=== PATIENT | male | born 1980 | race Caucasian/White ===

== ENCOUNTER 2022-01-02 17:08 | Inpatient (IN) | payer MEDICAID, OTHER, SELFPAY ==
[~2022-01-02] VITALS: Ht 182.9 cm; Wt 91.0 kg
[2022-01-02] MEDS ORDERED: NS 1,000 ML IV SCH (17:15)
[2022-01-02 17:50] LABS: BASO % 0.4 % (0.0-1.0); EOS % 0.4 % (0.0-3.0); HEMATOCRIT 47.7 % (42.0-52.0); LYMPH # 3.5 10^3/uL (1.5-5.0); LYMPH % 37.1 % (24.0-44.0); MEAN CORPUSCULAR HEMOGLOBIN 29.9 pg (27.0-33.0); MEAN CORPUSCULAR HGB CONC 33.5 g/dl (32.0-36.5); MONO # 0.7 10^3/uL (0.0-0.8); MONO % 7.4 % (2.0-8.0); NEUTROPHILS # 5.2 10^3/uL (1.5-8.5); NEUTROPHILS % 54.5 % (36.0-66.0); PLATELET COUNT, AUTOMATED 256 10^3/uL (150-450); RED BLOOD COUNT 5.36 10^6/uL (4.30-6.10); WHITE BLOOD COUNT 9.5 10^3/uL (4.0-10.0)
[2022-01-02] MEDS ORDERED: PROPOFOL 1,000 MG/100 ML VIAL As Ordered ONE (17:57)
[2022-01-02] MEDS ORDERED: ROCURONIUM BROMIDE 50 MG/5 ML VIAL IV ONE (18:05)
[2022-01-02] MEDS ORDERED: ETOMIDATE INJ 20MG/10ML VIAL IV ONE (18:05)
[2022-01-02] MEDS: propofoL 1,000 MG in IV 1 EA IV SCH ×2 (18:06→22:56)
[2022-01-02 18:19] LABS: RSV AMPLIFICATION NEGATIVE (NEGATIVE)
[2022-01-02] MEDS: ROCURONIUM BROMIDE 50 MG/5 ML VIAL IV PRN ×2 (18:25→18:56)
[2022-01-02 18:29] LABS: AMPHETAMINES LEVEL URINE NEGATIVE (NEGATIVE); BARBITURATES URINE NEGATIVE (NEGATIVE); BENZODIAZEPINES URINE NEGATIVE (NEGATIVE); CANNABINOIDS URINE NEGATIVE (NEGATIVE); COCAINE METABOLITE URINE NEGATIVE (NEGATIVE); METHADONE URINE NEGATIVE (NEGATIVE); OPIATES URINE NEGATIVE (NEGATIVE); PHENCYCLIDINE URINE NEGATIVE (NEGATIVE)
[2022-01-02 18:47] LABS: ACETAMINOPHEN LEVEL < 2.0 UG/ML (10.0-30.0); ALBUMIN 4.3 GM/DL (3.2-5.2); ALT/SGPT 28 U/L (12-78); BILIRUBIN,DIRECT 0.1 MG/DL (0.0-0.2); BILIRUBIN,TOTAL 0.3 MG/DL (0.2-1.0); BLOOD UREA NITROGEN 6 MG/DL (7-18); CALCIUM LEVEL 8.7 MG/DL (8.5-10.1); CARBON DIOXIDE LEVEL 25 MEQ/L (21-32); CHLORIDE LEVEL 107 MEQ/L (98-107); CREATININE FOR GFR 0.78 MG/DL (0.70-1.30); ETHYL ALCOHOL (ETHANOL) 0.333 % (0.000-0.010); GLOMERULAR FILTRATION RATE > 60.0 (>60); GLUCOSE, FASTING 116 MG/DL (70-100); POTASSIUM SERUM 3.5 MEQ/L (3.5-5.1); SODIUM LEVEL 143 MEQ/L (136-145); THYROID STIMULATING HORMONE 0.364 uIU/ML (0.358-3.740); TOTAL PROTEIN 7.5 GM/DL (6.4-8.2)
[2022-01-02] MEDS ORDERED: CHARCOAL ACTIVATED LIQUID 25 GM/120 ML BTL NG ONE (18:50)
[2022-01-02] MEDS ORDERED: HOME MED LIST COMPLETE! XX SCH (19:20)
[2022-01-02] MEDS ORDERED: THIAMINE 200MG 2ML VIAL IM SCH (21:00)
[2022-01-02] MEDS ORDERED: MIDAZOLAM 100MG/100ML-0.9%NACL 100 MG in IV 1 EA IV SCH (21:00)
[2022-01-02 22:32] LABS: ABG HCO3 24.9 MEQ/L (22.0-26.0); ABG PARTIAL PRESSURE CO2 45.4 mmHg (35.0-45.0); ABG PARTIAL PRESSURE O2 126.9 mmHg (75.0-100.0); ABG STANDARD HCO3 23.7 MEQ/L (22.0-26.0); ABG TOTAL CO2 26.3 MEQ/L (22.0-29.0); ABG pH (ARTERIAL) 7.357 UNITS (7.350-7.450)
[2022-01-02] MEDS: NS 1,000 ML IV SCH (22:35)
[2022-01-02 22:59] LABS: ALBUMIN 3.7 GM/DL (3.2-5.2); ALT/SGPT 27 U/L (12-78); BILIRUBIN,TOTAL 0.5 MG/DL (0.2-1.0); BLOOD UREA NITROGEN 5 MG/DL (7-18); CALCIUM LEVEL 8.5 MG/DL (8.5-10.1); CARBON DIOXIDE LEVEL 25 MEQ/L (21-32); CHLORIDE LEVEL 109 MEQ/L (98-107); CREATININE FOR GFR 0.84 MG/DL (0.70-1.30); GLOMERULAR FILTRATION RATE > 60.0 (>60); GLUCOSE, FASTING 115 MG/DL (70-100); SODIUM LEVEL 142 MEQ/L (136-145); TOTAL PROTEIN 6.9 GM/DL (6.4-8.2); VALPROIC ACID (DEPAKOTE) 53.5 UG/ML (50.0-100.0)
[2022-01-02 23:44] VITALS: O2SAT 98
[2022-01-02 23:45] VITALS: BP 130/85
[2022-01-03] VITALS (33 sets, daily range): BP systolic 95–118; BP diastolic 52–78
[2022-01-03] MEDS: propofoL 1,000 MG in IV 1 EA IV SCH ×2 (00:03→03:45)
[2022-01-03] MEDS: CHLORHEXIDINE GLUCONATE 0.12 % 15ML UDC (PERIDEX ORAL RINSE) MT SCH ×2 (00:03→08:16)
[2022-01-03] MEDS: HEPARIN SOD (PORCINE) 5000UNITS/ML 1ML VIAL/SYRINGE SC SCH ×2 (05:17→14:00)
[2022-01-03] MEDS: NS 1,000 ML IV SCH (05:17)
[2022-01-03 05:50] LABS: ALBUMIN 3.3 GM/DL (3.2-5.2); ALT/SGPT 23 U/L (12-78); BILIRUBIN,TOTAL 0.3 MG/DL (0.2-1.0); BLOOD UREA NITROGEN 7 MG/DL (7-18); CALCIUM LEVEL 8.1 MG/DL (8.5-10.1); CARBON DIOXIDE LEVEL 25 MEQ/L (21-32); CHLORIDE LEVEL 109 MEQ/L (98-107); CREATININE FOR GFR 0.78 MG/DL (0.70-1.30); GLOMERULAR FILTRATION RATE > 60.0 (>60); GLUCOSE, FASTING 93 MG/DL (70-100); PHOSPHORUS LEVEL 2.2 MG/DL (2.5-4.9); POTASSIUM SERUM 3.7 MEQ/L (3.5-5.1); SODIUM LEVEL 143 MEQ/L (136-145); TOTAL PROTEIN 6.5 GM/DL (6.4-8.2)
[2022-01-03 06:14] LABS: ABG BASE EXCESS -0.4 (-2.0-2.0); ABG HCO3 23.5 MEQ/L (22.0-26.0); ABG O2 SATURATION 98.6 % (95.0-99.0); ABG PARTIAL PRESSURE CO2 36.8 mmHg (35.0-45.0); ABG PARTIAL PRESSURE O2 127.9 mmHg (75.0-100.0); ABG STANDARD HCO3 24.2 MEQ/L (22.0-26.0); ABG TOTAL CO2 24.7 MEQ/L (22.0-29.0); ABG pH (ARTERIAL) 7.424 UNITS (7.350-7.450)
[2022-01-03] MEDS ORDERED: patient comment (10:07)
[2022-01-03] MEDS ORDERED: HOME MED LIST COMPLETE! XX SCH (10:10)
[2022-01-03] MEDS ORDERED: VASOPRESSIN INJ 20 UNITS in NS 499 ML IV SCH (15:10)
[2022-01-04] MEDS ORDERED: BUSP15TA47 PO (08:57)
[2022-01-04] MEDS ORDERED: CITA20TA6 PO (08:57)
[2022-01-04] MEDS ORDERED: DEPA500T2 PO (08:57)
[2022-01-04] MEDS ORDERED: SILD50TA PO (09:05)
== END 2022-01-03 15:43 | DRG 812 ==
LOC: M ED 17:08 → EDBD 17:08 → M ED INP 20:59 → ENRESERV 22:11 → M ICU 23:34
PROVIDERS: ADMIT Internal Medicine; ATTEND Internal Medicine
PROC: 0BH17EZ Insertion of Endotracheal Airway into Trachea, Via Natural or Artificial Opening (ICD-10-PCS; principal; 2022-01-02)
PROC: 5A1935Z Respiratory Ventilation, Less than 24 Consecutive Hours (ICD-10-PCS; 2022-01-02)
DX: T43.222A Poisoning by selective serotonin reuptake inhibitors, intentional self-harm, initial encounter (principal); J96.01 Acute respiratory failure with hypoxia; G93.41 Metabolic encephalopathy; T43.592A Poisoning by other antipsychotics and neuroleptics, intentional self-harm, initial encounter; F10.129 Alcohol abuse with intoxication, unspecified; F32.A Depression, unspecified; Z63.5 Disruption of family by separation and divorce

== ENCOUNTER 2022-01-03 15:15 | Inpatient (IN) | payer MEDICAID, OTHER, SELFPAY ==
[~2022-01-03] VITALS: Ht 175.3 cm; Wt 86.4 kg
[~2022-01-03 15:15] MED LIST: patient comment
[2022-01-03] MEDS ORDERED: traZODone 50 MG TAB PO PRN (15:25)
[2022-01-03] MEDS ORDERED: LORazepam 2 MG TAB PO PRN (15:25)
[2022-01-03] MEDS ORDERED: MAALOX 30 ML SUSP *UDC PO PRN (15:25)
[2022-01-03] MEDS ORDERED: MOM 30ML SUSPENSION UDC PO PRN (15:25)
[2022-01-03 15:42] VITALS: BP_SYST 123; BP_SYST 127; BP_DIAS 63
[2022-01-03] MEDS: FOLIC ACID 1MG TAB PO SCH (17:11)
[2022-01-03] MEDS: MULTIVITAMINS/MINERALS THERAP 1 TAB PO SCH (17:11)
[2022-01-03] MEDS: THIAMINE 100 MG TAB PO SCH (21:00)
[2022-01-03 23:40] VITALS: BP 141/89
[2022-01-04 06:25] VITALS: BP 135/88
[2022-01-04] MEDS ORDERED: DEPA500T2 PO (08:57)
[2022-01-04] MEDS ORDERED: CITA20TA6 PO (08:57)
[2022-01-04] MEDS ORDERED: BUSP15TA47 PO (08:57)
[2022-01-04] MEDS: NICOTINE 21MG/24HR 1 EA TRANSDERMAL TD SCH (09:00)
[2022-01-04] MEDS ORDERED: HOME MED LIST COMPLETE! XX SCH (09:00)
[2022-01-04] MEDS ORDERED: SILD50TA PO (09:05)
[2022-01-04] MEDS: FOLIC ACID 1MG TAB PO SCH (09:55)
[2022-01-04] MEDS: THIAMINE 100 MG TAB PO SCH ×2 (09:55→21:25)
[2022-01-04] MEDS: MULTIVITAMINS/MINERALS THERAP 1 TAB PO SCH (09:55)
[2022-01-04] MEDS: SERTRALINE HCL 50 MG TAB PO SCH (09:58)
[2022-01-04 16:21] VITALS: BP 140/92
[2022-01-04] MEDS: ACETAMINOPHEN TAB 650MG DOSE (2X325MG) PO PRN ×2 (19:00→19:02)
[2022-01-04 21:35] VITALS: BP 150/90
[2022-01-04] MEDS ORDERED: OLANZapine ORAL DISINTEGRATING TAB 5MG PO ONE (21:45)
[2022-01-05 06:19] VITALS: BP 120/78
[2022-01-05 06:20] VITALS: BP 120/78
[2022-01-05] MEDS: NICOTINE 21MG/24HR 1 EA TRANSDERMAL TD SCH (09:00)
[2022-01-05] MEDS: MULTIVITAMINS/MINERALS THERAP 1 TAB PO SCH (09:17)
[2022-01-05] MEDS: FOLIC ACID 1MG TAB PO SCH (09:17)
[2022-01-05] MEDS: SERTRALINE HCL 50 MG TAB PO SCH (09:17)
[2022-01-05] MEDS: THIAMINE 100 MG TAB PO SCH ×2 (09:17→21:52)
[2022-01-05 14:30] VITALS: BP 125/84
[2022-01-05 16:09] VITALS: BP 128/77
[2022-01-06 06:19] VITALS: BP 138/80
[2022-01-06] MEDS: NICOTINE 21MG/24HR 1 EA TRANSDERMAL TD SCH (08:52)
[2022-01-06] MEDS: THIAMINE 100 MG TAB PO SCH (08:53)
[2022-01-06] MEDS: MULTIVITAMINS/MINERALS THERAP 1 TAB PO SCH (08:53)
[2022-01-06] MEDS: SERTRALINE HCL 50 MG TAB PO SCH (08:53)
[2022-01-06] MEDS: FOLIC ACID 1MG TAB PO SCH (08:53)
[2022-01-06] MEDS ORDERED: NICO21PAT TD (09:35)
[2022-01-06] MEDS ORDERED: SERT50TA29 PO (09:35)
[2022-01-06] MEDS ORDERED: hydrOXYzine 50 MG TAB PO ONE (15:25)
== END 2022-01-06 16:19 | disposition home or self-care (01) | DRG 754 ==
LOC: M PSY 15:47
PROVIDERS: ADMIT Psychiatry & Neurology Psychiatry; ATTEND Student in an Organized Health Care Education/Training Program
DX: F32.A Depression, unspecified (principal); F10.20 Alcohol dependence, uncomplicated; Z91.51 Personal history of suicidal behavior; Z79.899 Other long term (current) drug therapy; Z63.5 Disruption of family by separation and divorce